=== PATIENT | female | born 1980 | race Caucasian/White ===

== ENCOUNTER 2019-05-20 13:00 | Emergency (ER) | payer MEDICAID, OTHER ==
[~2019-05-20] VITALS: Ht 167.6 cm; Wt 93.7 kg
[2019-05-20 13:14] VITALS: BP 126/68
[2019-05-20] MEDS ORDERED: BCP (13:50)
[2019-05-20] MEDS ORDERED: LIDOCAINE-MPF 1%, 5ML ONE (13:51)
[2019-05-20] MEDS ORDERED: DIPH,PERTUSS(ACELL),TET VAC/PF 0.5 ML IM-VACC ONE ×2 (13:51→14:00)
[2019-05-20] MEDS ORDERED: LIDOCAINE-MPF 1%, 5ML INFIL ONE (14:00)
[2019-05-20] MEDS ORDERED: NEOSPORIN OINT. PKT 1 PACKET ONE (14:29)
== END 2019-05-20 14:43 | disposition home or self-care (01) ==
LOC: ED 14:28
DX: S61.211A Laceration without foreign body of left index finger without damage to nail, initial encounter (principal); W26.8XXA Contact with other sharp object(s), not elsewhere classified, initial encounter; Y93.89 Activity, other specified; Y92.69 Other specified industrial and construction area as the place of occurrence of the external cause; Y99.8 Other external cause status
CPT/HCPCS: 12001; 90471; 90715